=== PATIENT | male | born 1995 | race Caucasian/White ===

== ENCOUNTER 2018-11-06 09:22 | Emergency (ER) | payer OTHER, SELFPAY ==
[2018-11-06 09:23] VITALS: BP 137/85; PULSE 95; RESP 16; TEMP 36.7; O2SAT 99; BMI 27.2
--- NOTE | 2018-11-06 09:49 | RAD_ITS ---
STUDY: X-RAY - RIGHT TIBIA AND FIBULA REASON FOR EXAM: Male, 23 years old. Anterior lower extremity pain following injury. TECHNIQUE: 2 view(s) of the tibia and fibula were obtained. COMPARISON: None. FINDINGS: Normal visualized tibia. Normal visualized fibula. The soft tissue structures are unremarkable. RAD/Tibia & Fibula 2 Views IMPRESSION: Normal x-ray examination of the tibia and fibula. Electronically Signed: João Pendleton MD at 11:07 EST , Service support ,
--- NOTE | 2018-11-06 11:47 | ED.DCSUM_ITS ---
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 He states his leg buckled underneath him when he fell. He felt a pop, but complains of pain primarily over the proximal tib-fib area. He denies striking his head or loss of consciousness. He denies any other injury. Physical Examination: Vital signs unremarkable. Patient sitting upright in bed no acute distress. Head and neck examination reveals no trauma. Heart is regular rate and rhythm. Lungs sounds are clear. Right lower extremity examination reveals no tenderness at the hip or knee joint. Ligaments are tight on testing. He has mild tenderness over the proximal lateral portion of the tib-fib. Strong distal pulses and normal sensation are noted. Test Results: Right tib-fib x-rays are unremarkable. Emergency Department Course and Treatment: Patient declined anything for pain while here. Lower leg was placed in an Ruben wrap. He has been able to ambulate without difficulty. Treatment Plan: [] Disposition: Discharge Impression: Right leg contusion status post fall This note was generated with [employer] dictation software. It may contain incorrect words, spelling, and punctuation that were not noted in review of the chart prior to signing ED Disposition - Plan for ED Patient: Disposition: Home or Assisted Living Instructions: ED Contusion Lower Ext Prescriptions: Naproxen [Naprosyn] 500 mg PO BID PRN PRN #20 tablet PRN Reason: Pain Referrals: Linsey Rock MD [Primary Care Provider] - As Needed
== END 2018-11-06 12:27 | disposition home or self-care (01) ==
PROVIDERS: Emergency Provider Emergency Medicine; Family Provider Family Medicine; PCP Family Medicine
DX: S80.11XA Contusion of right lower leg, initial encounter (principal); W00.0XXA Fall on same level due to ice and snow, initial encounter; Y93.9 Activity, unspecified; Y99.9 Unspecified external cause status; Y92.214 College as the place of occurrence of the external cause
CPT/HCPCS: 73590; 99284